=== PATIENT | male | born 1950 | race Caucasian/White ===

== ENCOUNTER 2016-08-16 23:45 | Emergency (ER) | payer OTHER, MEDICARE ==
[~2016-08-16] VITALS: Ht 175.3 cm; Wt 83.9 kg
[~2016-08-16 23:45] MED LIST: LOVASTATIN; TAMS-11 PO
[2016-08-17] VITALS: BP 133/78; PULSE 88; RESP 18; TEMP 98.8; O2SAT 99
--- NOTE | 2016-08-17 | NUR ---
ER at bedside examining patient.
--- NOTE | 2016-08-17 00:10 | NUR ---
PT IS AOX4, C/O UNABLE TO URINATE AFTER TAKING OUT HIS JERNIGAN THIS AM STATED BY THE PT WITH PAIN SCALE 6/10.
[2016-08-17] MEDS ORDERED: LIDOCAINE VISCOUS 2%, 15 ML UDC MM ONE (00:15)
--- NOTE | 2016-08-17 00:15 | NUR ---
ER at bedside examining patient.
--- NOTE | 2016-08-17 00:30 | NUR ---
# 16 FR Victor catheter with use of sterile technique. Immediate return of 900 cc YELLOW urine noted. Bedside drainage bag placed below level of bladder. Urine sample collected and sent to lab. Pt tolerated procedure WELL. Patient unable to toilet self.
[2016-08-17 01:30] VITALS: BP 133/78; PULSE 88; RESP 18; TEMP 98.8; O2SAT 99
--- NOTE | 2016-08-17 01:30 | NUR ---
Patient given written and verbal discharge instructions and verbalizes understanding. ER MD discussed with patient the results and treatment provided. Patient in stable condition. ID arm band removed. NO Rx of given. Patient educated on pain management and to follow up with PMD. Pain Scale 0/10. Opportunity for questions provided and answered.
== END 2016-08-17 01:30 | disposition home or self-care (01) ==
LOC: SED 23:45
DX: R33.9 Retention of urine, unspecified (principal); R10.30 Lower abdominal pain, unspecified; Z88.0 Allergy status to penicillin
CPT/HCPCS: 51702; 99284; J2001